=== PATIENT | female | born 1995 | race Caucasian/White ===

== ENCOUNTER 2022-01-17 17:15 | Emergency (ER) | payer OTHER ==
[2022-01-17 17:37] VITALS: BP 144/85; PULSE 91; RESP 20; TEMP 98.2; BMI 37.1
[2022-01-17] MEDS ORDERED: BENZOCAINE/MENTH/CETYLPYRD CL 1 EACH LOZENGE MM PRN (17:40)
[2022-01-17] MEDS ORDERED: ACETAMINOPHEN 500 MG TABLET (FP) PO ONE (17:40)
[2022-01-17] MEDS ORDERED: ACETAMINOPHEN 325 MG TABLET (FP) ONE (17:58)
[2022-01-17] MEDS ORDERED: AZITHROMYCIN 250 MG TABLET PO ONE (18:18)
[2022-01-17] MEDS ORDERED: AZITHROMYCIN 500 MG TABLET ONE (18:23)
== END 2022-01-17 18:40 | disposition home or self-care (01) ==
LOC: FER 17:15
DX: J40 Bronchitis, not specified as acute or chronic (principal); B34.9 Viral infection, unspecified
CPT/HCPCS: 0241U-QW; 71045-TC-FY; 82962; 99284-25

== ENCOUNTER 2022-01-31 16:55 | Emergency (ER) | payer OTHER ==
[2022-01-31 17:04] VITALS: BP 124/86; PULSE 91; RESP 20; TEMP 98.4; BMI 36.6
[2022-01-31] MEDS ORDERED: ALBUTEROL SO4 2.5/IPRATROPIUM 0.5 INH SOL 3 ML VIAL.NEB. NEB ONE ×2 (17:09→17:41)
[2022-01-31] MEDS ORDERED: predniSONE 20 MG TABLET (UD) PO ONE (17:09)
[2022-01-31] MEDS ORDERED: predniSONE 20 MG TABLET (UD) ONE (17:41)
== END 2022-01-31 19:03 | disposition home or self-care (01) ==
LOC: FER 16:55
PROC: 3E0F7GC Introduction of Other Therapeutic Substance into Respiratory Tract, Via Natural or Artificial Opening (ICD-10-PCS; principal; 2022-01-31)
DX: R05.2 Subacute cough (principal); B34.9 Viral infection, unspecified
CPT/HCPCS: 0241U-QW; 99283-25